=== PATIENT | male | born 1955 | race Caucasian/White ===

== ENCOUNTER 2018-02-27 11:01 | Emergency (ER) | payer OTHER ==
[~2018-02-27] VITALS: Ht 172.7 cm; Wt 111.1 kg
[2018-02-27] MEDS ORDERED: ATENOLOL 50 MG (11:49)
[2018-02-27] MEDS ORDERED: PRINIVIL20 MG (11:49)
[2018-02-27] MEDS ORDERED: NORVASC10 MG (11:50)
[2018-02-27] MEDS ORDERED: METFORMIN HCL500 MG (11:50)
[2018-02-27] MEDS ORDERED: GLIPIZIDE10 MG (11:50)
[2018-02-27] MEDS ORDERED: KETO10TA2 PO (15:28)
[2018-02-27] MEDS ORDERED: MEDROLPACK PO (15:28)
[2018-02-27] MEDS ORDERED: NORFLEX100MG PO (15:28)
== END 2018-02-27 16:15 | disposition home or self-care (01) ==
LOC: ER 11:01
DX: M54.5 Low back pain (principal)